=== PATIENT | male | born 1975 | race Caucasian/White ===

== ENCOUNTER 2016-09-24 13:17 | Emergency (ER) | payer OTHER ==
[~2016-09-24] VITALS: Ht 170.2 cm; Wt 93.0 kg
[2016-09-24] MEDS ORDERED: SODIUM CHLORIDE 0.9% 1,000 ML IVB ONE (13:35)
[2016-09-24 13:56] LABS: Basophils # (auto) 0 uL; Basophils % (auto) 0.4 % (0.0-2.0); Eosinophils # (auto) 0.1 uL; Eosinophils % (auto) 2.2 % (0.0-7.0); Hemoglobin 15.1 g/dL (13.5-17.5); Lymphocytes # (auto) 2.3 uL; Lymphocytes % (auto) 34.1 % (10.0-50.0); Mean Corpuscular Hemoglobin 32.2 pg (28.0-32.0); Mean Corpuscular Hgb Conc. 34.3 g/dL (32.0-36.0); Mean Platelet Volume 7.3 fL (7.4-10.4); Monocytes # (auto) 0.4 uL; Monocytes % (auto) 6.5 % (0.0-12.0); Neutrophils # (auto) 3.9 uL; Neutrophils % (auto) 56.8 % (37.0-80.0); Platelet Count (auto) 285 10^3/uL (140-450); Red Cell Distribution Width 12.3 % (11.6-16.0); White Blood Cell 6.8 10^3/uL (4.4-10.8)
[2016-09-24 14:23] LABS: INR 1.02 (0.9-1.15); Partial Thromboplastin Time 29.4 sec (22.64-33.71); Prothrombin Time 10.5 sec (9.37-12.3)
[2016-09-24 14:46] LABS: Alkaline Phosphatase 95 U/L (45-117); Anion Gap 10 (5-15); Bilirubin, Total 0.4 mg/dL (0.2-1.0); Calcium 8.3 mg/dL (8.5-10.1); Carbon Dioxide 24 mmol/L (21-32); Chloride 105 mmol/L (98-107); GFR African American 85 mL/min; GFR Non-African American 71 mL/min; Glucose 111 mg/dL (74-106); Magnesium 2.1 mg/dL (1.6-2.6); Potassium 3.7 mmol/L (3.5-5.1); Sodium 139 mmol/L (136-145)
[2016-09-24] MEDS ORDERED: MORPHINE SULF INJ 2 MG/ML SYRINGE 1ML IV ONE (15:00)
[2016-09-24] MEDS ORDERED: ONDANSETRON HCL 4 MG/2 ML VIAL IV ONE (15:00)
[2016-09-24 17:53] LABS: Aspartate Aminotransferase 33 U/L (15-37); BUN/Creatinine Ratio 14.9; Blood Urea Nitrogen 18 mg/dL (7-18)
[2016-09-24 17:54] LABS: Total Protein 7.5 g/dL (6.4-8.2)
[2016-09-24 18:19] VITALS: BP 116/73
== END 2016-09-24 18:19 | disposition home or self-care (01) ==
LOC: ER 13:23
DX: R07.89 Other chest pain (principal); E78.5 Hyperlipidemia, unspecified
CPT/HCPCS: 36415; 71010; 80053; 83735; 84484; 85025; 85610; 85730; 93005; 94761; 96361; 96374; 96375; 99285; J2270; J2405; J7030